=== PATIENT | male | born 1965 | race Caucasian/White ===

== ENCOUNTER 2017-01-03 14:52 | Outpatient (CLI) | payer OTHER | END 2017-01-03 14:53 | disposition home or self-care (01) | DX: G47.33 Obstructive sleep apnea (adult) (pediatric) (principal) ==

== ENCOUNTER 2017-01-10 11:04 | Outpatient (CLI) | payer OTHER | END 2017-01-10 11:05 | disposition home or self-care (01) | DX: G47.33 Obstructive sleep apnea (adult) (pediatric) (principal); Z68.33 Body mass index [BMI] 33.0-33.9, adult ==

== ENCOUNTER 2017-01-25 15:20 | Outpatient (CLI) | payer OTHER | END 2017-01-25 15:21 | disposition home or self-care (01) | DX: G47.33 Obstructive sleep apnea (adult) (pediatric) (principal) ==

== ENCOUNTER 2018-01-03 15:07 | Outpatient (CLI) | payer OTHER | END 2018-01-03 15:08 | disposition home or self-care (01) | LOC: SC 15:07 | PROVIDERS: ATTEND Internal Medicine Pulmonary Disease | DX: G47.33 Obstructive sleep apnea (adult) (pediatric) (principal) | CPT/HCPCS: 99212; 99213 ==

== ENCOUNTER 2019-01-01 15:26 | Outpatient (CLI) | payer OTHER | END 2019-01-01 15:27 | disposition home or self-care (01) | LOC: SC 15:26 | PROVIDERS: ATTEND Nurse Practitioner Family | DX: G47.33 Obstructive sleep apnea (adult) (pediatric) (principal) | CPT/HCPCS: 99212; 99214 ==

== ENCOUNTER 2019-02-04 15:20 | Emergency (ER) | payer OTHER ==
[2019-02-04 15:27] VITALS: BP 144/93
--- NOTE | 2019-02-04 15:34 | ED Physician Documentation ---
PD HPI SKIN - Stated complaint Stated Complaint: BLISTERS - Chief complaint Chief Complaint: Wound - History obtained from History obtained from: Patient - History of Present Illness Timing - onset: Today Timing - duration: Days (1) Timing - details: Abrupt onset Location: LUE (wore new brace on left knee and noted blisters where the upper elastic band holds it in place on the leg. Was here with another person in the hospital, so came to ER for bandage.) Quality / character: Burning, Vesicular Associated symptoms: No: Fever, Myalgias Review of Systems Constitutional: denies: Fever, Chills, Myalgias Skin: reports: Rash PD PAST MEDICAL HISTORY - Past Medical History Cardiovascular: Hypertension Musculoskeletal: Osteoarthritis - Past Surgical History Ortho: Arthroscopic surgery - Present Medications Home Medications: Ambulatory Orders Medication Instructions Recorded Confirmed Glucosamine Sulfate 1 tab PO DAILY 09/07/16 09/07/16 Meloxicam [Mobic] 7.5 mg PO DAILY #20 tablet 09/07/16 Methocarbamol [Robaxin] 1,000 mg PO Q8HR #30 tablet 09/07/16 Omeprazole [PriLOSEC] 1 tab PO DAILY 09/07/16 09/07/16 raNITIdine [Zantac] 150 mg PO DAILY #30 tablet 09/07/16 - Allergies Allergies/Adverse Reactions: Allergies Allergy/AdvReac Type Severity Reaction Status Date / Time sunscreen Allergy Intermediate Rash Uncoded 02/04/19 15:27 PD ED PE NORMAL - Vitals Vital signs reviewed: Yes - General General: Alert and oriented X 3, No acute distress, Well developed/nourished - Derm Derm: Normal color, Warm and dry, Other (linear red blistered rash around the mid thigh in pattern of the elastic band from the knee brace. No rash over the rest of the brace area. ) - Neuro Neuro: No motor deficit, No sensory deficit Results - Vitals Vitals: Vital Signs - 24 hr 02/04/19 15:22 Heart Rate 97 Respiratory 14 Rate Blood Pressure 144/93 H O2 Saturation 98 Oxygen O2 Source Room air Departure - Departure Disposition: 01 Home, Self Care Clinical Impression: Contact dermatitis Qualifiers: Contact dermatitis type: irritant Contact dermatitis trigger: other trigger Qualified Code(s): L24.89 - Irritant contact dermatitis due to other agents Condition: Stable Record reviewed to determine appropriate education?: Yes Instructions: ED Dermatitis Contact Comments: Continue some ointment of some sort to the area. It could be bacitracin or bag balm or such. Cover it with some dressing while the wounds are open. It should improve over couple of days. Obviously do not use that knee brace anymore. Discharge Date/Time: 02/04/19 15:57
[2019-02-04] MEDS ORDERED: MUPIROCIN 2% OINT 1 GM TOP STA (15:51)
[2019-02-04] MEDS ORDERED: BACITRACIN OINT TOP ONE (15:55)
== END 2019-02-04 15:57 | disposition home or self-care (01) ==
LOC: ED 15:20
DX: L24.89 Irritant contact dermatitis due to other agents (principal); I10 Essential (primary) hypertension
CPT/HCPCS: 99282; 99283; A9270

== ENCOUNTER 2023-06-12 19:29 | Outpatient (CLI) | payer MEDICARE, OTHER | END 2023-06-12 23:59 | disposition short-term general hospital (02) | LOC: EMS 19:29 | DX: S29.9XXA Unspecified injury of thorax, initial encounter (principal); R07.81 Pleurodynia; W07.XXXA Fall from chair, initial encounter; Y92.009 Unspecified place in unspecified non-institutional (private) residence as the place of occurrence of the external cause | CPT/HCPCS: A0425; A0429 ==